=== PATIENT | female | born 1980 | race Caucasian/White ===

== ENCOUNTER 2016-02-18 12:32 | Outpatient (CLI) | payer BC ==
[2016-02-18 13:17] LABS: AMORPHOUS SEDIMENT,URINE TRACE /HPF; APPEARANCE,URINE CLOUDY; BILIRUBIN,URINE NEGATIVE (NEGATIVE); GLUCOSE, URINE NEGATIVE (NEGATIVE); KETONES,URINE NEGATIVE (NEGATIVE); LEUKOCYTE ESTERASE,URINE NEGATIVE (NEGATIVE); NITRITE,URINE NEGATIVE (NEGATIVE); PROTEIN,URINE NEGATIVE (NEGATIVE); URINE SPECIFIC GRAVITY 1.011; UROBILINOGEN,URINE NEGATIVE mg/dL (<2.0)
--- NOTE | 2016-02-19 11:53 | Antepartum Discharge Summary ---
Antepartum DC Datetime Report Generated by CPN: 02/19/2016 11:53 DIET/ACTIVITY/RESTRICTIONS Diet: Regular (02/18/2016 14:57:Taina Bellavance, RNC) Activity: Normal Activity (02/18/2016 14:57:Taina Bellavance, RNC) TEACHING/INSTRUCTIONS/REFERRALS Instructions Given To: patient (02/18/2016 14:57:Taina Bellavance, RNC) Instructions Understood: Patient Verbalized Understanding (02/18/2016 14:57:Taina Bellavance, RNC) Referrals: None (02/18/2016 14:57:Taina Bellavance, RNC) Educational Materials- Other: kick counts (02/18/2016 14:57:Taina Bellavance, RNC) DISCHARGE INFORMATION Discharged AMA: No (02/18/2016 14:57:Taina Bellavance, RNC) Physician Notified of Disch AMA: Dr Franklin (02/18/2016 14:57:Taina Bellavance, RNC) Discharge Date/Time: 02/18/2016 14:58 (02/18/2016 14:57:Taina Bellavance, RNC) Discharged To: Home (02/18/2016 14:57:Taina Bellavance, RNC) Discharge Provider Name: Dr Franklin (02/18/2016 14:57:Taina Bellavance, RNC) Accompanied By: (02/18/2016 14:57:Taina Bellavance, RNC) Discharge Method: Ambulatory (02/18/2016 14:57:Taina Bellavance, RNC) Condition: Stable (02/18/2016 14:57:Taina Bellavance, RNC) FOLLOW UP INFORMATION Follow Up With: [facility] (02/18/2016 14:57:SCOTT Gee) Follow Up On: As Scheduled (02/18/2016 14:57:SCOTT Gee) Follow Up Phone Number: [facility] - (02/18/2016 14:57:SCOTT Gee)
--- NOTE | 2016-02-19 11:54 | L&D Discharge Summary ---
OB Discharge Summary Datetime Report Generated by CPN: 02/19/2016 11:54 DISCHARGE DIAGNOSIS Diagnosis/Symptoms: Other Diagnoses/Symptoms Other: pressure in abdomen Treatment/Procedures Other: monitoring Gestation: 31.0 Number of Babies in Womb: 1 Parity: 1 DIET/ACTIVITY/RESTRICTIONS Diet: Regular Activity: Normal Activity TEACHING/INSTRUCTIONS/REFERRALS Instructions Given To: patient Instructions Understood: Patient Verbalized Understanding Referrals: None Educational Materials- Other: kick counts DISCHARGE INFORMATION Discharged AMA: No Physician Notified of Disch AMA: Dr Franklin Discharge Date/Time: 02/18/2016 14:58 Discharged To: Home Discharge Provider Name: Dr Franklin Accompanied By: Discharge Method: Ambulatory Condition: Stable FOLLOW UP INFORMATION Follow Up With: [facility] Follow Up On: As Scheduled Follow Up Phone Number: [facility] -
--- NOTE | 2016-02-19 11:54 | L&D Flow Sheet ---
LD Flowsheet Datetime Report Generated by CPN: 02/19/2016 11:53 Datetime: 02/18/2016 14:56 Communication Additional Nursing Comments: patient given discharge instructions and kick counts reviewed Patient to home with and daughter (Taina Bellavance, RNC) Datetime: 02/18/2016 14:23 Communication Additional Nursing Comments: back from us (Taina Bellavance, RNC) Datetime: 02/18/2016 14:05 Uterine Activity Monitor Mode: External (Taina Bellavance, RNC) Frequency (min): 0 (Taina Bellavance, RNC) Resting Tone (Palpate): Relaxed (Taina Bellavance, RNC) Assessment A Monitor Mode: External US (Taina Bellavance, RNC) FHR Baseline Rate : 135 (Taina Bellavance, RNC) Variability: Moderate 6-25 bpm (Taina Bellavance, RNC) Accelerations: 15X15 (Taina Bellavance, RNC) Decelerations: None (Taina Bellavance, RNC) Patient Care Patient Position/Activity: Semi-Fowlers (Taina Bellavance, RNC) Communication Additional Nursing Comments: to us for cervical length (Taina Bellavance, RNC) Datetime: 02/18/2016 13:32 Pain Pain Scale: 3 (Taina Bellavance, RNC) Pain Presence: Intermittent (Taina Bellavance, RNC) Pain Type: Pressure (Taina Bellavance, RNC) Pain Location: Perineum (Taina Bellavance, RNC) Pain Goal: 0 (Taina Bellavance, RNC) Pain Relief Measures: Comfort Measures (Taina Bellavance, RNC) Pain Coping: Talking Through Contractions (Taina Bellavance, RNC) Pain Assessment Comments: patient states that she feels pressure every 30 to 45 minutes (Taina Bellavance, RNC) LaborFlag: OB Triage (QS system process) Datetime: 02/18/2016 13:18 Vital Signs Stage of : OB Triage (Taina Bellavance, RNC) Uterine Activity Monitor Mode: External (Taina Bellavance, RNC) Monitor Interventions for UA: Valier Adjusted (Taina Bellavance, RNC) Frequency (min): 0 (Taina Bellavance, RNC) Resting Tone (Palpate): Relaxed (Taina Bellavance, RNC) Assessment A Monitor Mode: External US (Taina Bellavance, RNC) Monitor Interventions for FHR: Ultrasound Adjusted (Taina Bellavance, RNC) FHR Baseline Rate : 135 (Taina Bellavance, RNC) Variability: Moderate 6-25 bpm (Taina Bellavance, RNC) Accelerations: 15X15 (Taina Bellavance, RNC) Decelerations: None (Taina Bellavance, RNC) Patient Care Patient Position/Activity: Semi-Fowlers (Taina Bellavance, RNC) Comfort Measures: Breathing/Relaxation; Family Support (Taina Bellavance, RNC) Datetime: 02/18/2016 13:16 Maternal Assessment Level of Consciousness: Fully Conscious (Taina Bellavance, RNC) DTR's/Clonus: DTRs 2+; No Clonus (Taina Bellavance, RNC) Headache: Denies (Taina Bellavance, RNC) Breath Sounds, Left: Clear and Equal (Taina Bellavance, RNC) Breath Sounds, Right: Clear and Equal (Taina Bellavance, RNC) Nausea/Vomiting: Denies (Taina Bellavance, RNC) RUQ Epigastric Pain: Denies (Taina Bellavance, RNC) Datetime: 02/18/2016 13:03 NBP Sys/Mireya/Mean (mmHg): 111 (QS system process) : 69 (QS system process) : 85 (QS system process) Pulse: 78 (QS system process)
--- NOTE | 2016-02-19 11:54 | L&D General Admission ---
General Admit Datetime Report Generated by CPN: 02/19/2016 11:53 INFORMATION Patient Age: 36 (02/18/2016 12:32:QS system process) EDC: 04/21/2016 00:00 (02/18/2016 12:53:Julianne Aragon RN) : 5 (02/18/2016 12:53:SCOTT Gee) Para: 1 (02/18/2016 14:57:SCOTT Gee) Para: 1 (02/18/2016 12:53:SCOTT Gee) Term: 1 (02/18/2016 12:53:SCOTT Gee) : 0 (02/18/2016 12:53:SCOTT Gee) Spontaneous Abortions: 2 (02/18/2016 12:53:SCOTT Gee) Induced Abortions: 1 (02/18/2016 12:53:SCOTT Gee) Livin (02/18/2016 12:53:Taina Bellavance, RNC) Cesareans: 0 (02/18/2016 12:53:Taina Bellavance, RNC) VBACs: 0 (02/18/2016 12:53:Taina Bellavance, RNC) Ectopic: 0 (02/18/2016 12:53:Taina Bellavance, RNC) Multiple Births: 0 (02/18/2016 12:53:Taina Bellavance, RNC) Baby, Number in Womb: 1 (02/18/2016 14:57:Taina Bellavance, RNC) Baby, Number in Womb: 1 (02/18/2016 12:53:Taina Bellavance, RNC) CARE Primary Gymnastics Coach Or Instructor: [facility] (02/18/2016 12:53:Taina Fraciscoe, RNC) Month of 1st Visit: august (02/18/2016 12:53:Tainanora Yape RNC) Adequate Care: Yes (02/18/2016 12:53:Taina Bellcristophernce, RNC) Prepregnancy Weight (lb): 176 (02/18/2016 12:53:Taina Bellavance, RNC) Prepregnancy Weight (kg): 80.0 (02/18/2016 12:53:QS system process) Height (in): 61 (02/18/2016 12:58:QS system process) Height (in): 24 (02/18/2016 12:53:QS system process) ALLERGIES Medication Allergy: No (02/18/2016 12:53:Taina Bellavance, RNC) Medication Allergies: No Known Allergies (02/18/2016) (02/18/2016 12:54:QS system process) Medication Allergies: no (02/18/2016 12:53:Taina Bellavance, RNC) Latex Allergy: No Latex Allergies (02/18/2016 12:53:Taina Bellavance, RNC) Food Allergies: no (02/18/2016 12:53:Taina Bellavance, RNC) Environmental Allergies: no (02/18/2016 12:53:Taina Bellavance, RNC) COMMUNICATION Primary Language: Citizen Of [place] (02/18/2016 12:53:Taina Bellavance, RNC) DEMOGRAPHICS Address: [address] [place] [id number] (02/18/2016 12:32:QS system process) Zipcode: [address] (02/18/2016 12:32:QS system process) Home (02/18/2016 12:32:QS system process) SSN: [id number] (02/18/2016 12:32:QS system process) Next of Kin Name: TIFFANIE FAGAN (02/18/2016 12:32:QS system process) Next of Kin (02/18/2016 12:32:QS system process) Next of Kin Relationship: SPO (02/18/2016 12:32:QS system process) Date of : 1980 (02/18/2016 12:32:QS system process) Marital Status: (02/18/2016 12:32:QS system process) Sex: Female (02/18/2016 12:32:QS system process) Race: (02/18/2016 12:32:QS system process) Ethnicity: Non- or (02/18/2016 12:32:QS system process) Voodoo: Mu-Ism (02/18/2016 12:32:QS system process) DRUG AND ALCOHOL USE Alcohol: No (02/18/2016 12:53:SCOTT Gee) Cigarettes: Never Smoker. [id number] (02/18/2016 12:53:SCOTT Gee) Marijuana: No (02/18/2016 12:53:Taina Bellavance, RNC) Cocaine: No (02/18/2016 12:53:Taina Bellavance, RNC) Other Illicit Drugs: No (02/18/2016 12:53:Taina Bellavance, RNC) VACCINE HISTORY Influenza Vaccine: Yes (02/18/2016 12:53:Taina Bellavance, RNC) Influenza Date: dec (02/18/2016 12:53:Taina Bellavance, RNC) Pneumococcal Vaccine: No (02/18/2016 12:53:Taina Bellavance, RNC) Tetanus Vaccine: Uncertain (02/18/2016 12:53:Taina Bellavance, RNC) Tdap Vaccine: Uncertain (02/18/2016 12:53:Taina Bellavance, RNC) Hepatitis B Vaccine: Yes (02/18/2016 12:53:Taina Bellavance, RNC) Non Cdl Driver: [facility] (02/18/2016 12:53:Taina Bellavance, RNC) Feeding Preference: Breast (02/18/2016 12:53:SCOTT Gee) Benefit of Breast Feed Discussed: Yes (02/18/2016 12:53:SCOTT Gee) Circumcision: N/A (02/18/2016 12:53:SCOTT Gee) Classes Attended: No (02/18/2016 12:53:SCOTT Gee) Tubal Ligation: Yes (02/18/2016 12:53:SCOTT Gee) Tubal Authorization Signed: N/A (02/18/2016 12:53:SCOTT Gee) Consent: N/A (02/18/2016 12:53:SCOTT Gee) Consent Signed: N/A (02/18/2016 12:53:SCOTT Gee) Pain Management Plans: Epidural (02/18/2016 12:53:SCOTT Gee) Plans for Labor and Delivery: None (02/18/2016 12:53:SCOTT Gee) Support Person: tiffanie (02/18/2016 12:53:SCOTT Gee) Support Person Relationship: (02/18/2016 12:53:SCOTT Gee) Other Relationship: fob (02/18/2016 12:53:SCOTT Gee) Cultural/Spritual Practice: No (02/18/2016 12:53:SCOTT Gee) Spir/Cult Dietary Needs: No (02/18/2016 12:53:SCOTT Gee) LIVING SITUATION/DISCHARGE PLAN Living Arrangements: House (02/18/2016 12:53:SCOTT Gee) Adequate Access to:: Electric; Heat; Refrigeration; Plumbing/Running water; Phone; Transportation (02/18/2016 12:53:SCOTT Gee) WIC Program: [place] (02/18/2016 12:53:SCOTT Gee) 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: tiffanie (02/18/2016 12:53:SCOTT Gee) Person to Help after Discharge: tiffanie (02/18/2016 12:53:SCOTT Gee) Currently Using [facility]: [place] (02/18/2016 12:53:SCOTT Gee) Outside Agency/[employer] Operator: [place] (02/18/2016 12:53:SCOTT Gee) Car Seat for Discharge: Yes (02/18/2016 12:53:SCOTT Gee) Adoption Requested: No (02/18/2016 12:53:SCOTT Gee) Pt Contact w/ Post : N/A (02/18/2016 12:53:SCOTT Gee) OB/PREVIOUS HISTORY Previous Procedures: Ultrasound (02/18/2016 12:53:SCOTT Gee) Current Procedures: Ultrasound (02/18/2016 12:53:SCOTT Gee) History of Previous : No (02/18/2016 12:53:SCOTT Gee) History of Gestational Diabetes: Yes (02/18/2016 12:53:SCOTT Gee) History of PIH: No (02/18/2016 12:53:SCOTT Gee) History of Incompetent Cervix: No (02/18/2016 12:53:SCOTT Gee) History of Placenta Previa/Abrup: No (02/18/2016 12:53:SCOTT Gee) History of Macrosomia: No (02/18/2016 12:53:SCOTT Gee) History of IUGR: No (02/18/2016 12:53:SCOTT Gee) History of Hemorrhage: No (02/18/2016 12:53:SCOTT Gee) History of Loss/Stillborn: No (02/18/2016 12:53:SCOTT Gee) History of : No (02/18/2016 12:53:SCOTT Gee) History of D (Rh) Sensitization: No (02/18/2016 12:53:SCOTT Gee) History Recurrent Loss/Stillborn: No (02/18/2016 12:53:SCOTT Gee) History Depression/PP Depression: Unknown (02/18/2016 12:53:SCOTT Gee) History of Uterine Anomaly/DANIEL: No (02/18/2016 12:53:SCOTT Gee) History of Infertility: No (02/18/2016 12:53:SCOTT Gee) History of ART Treatment: No (02/18/2016 12:53:SCOTT Gee) History of DANIEL: No (02/18/2016 12:53:SCOTT Gee) MEDICAL HISTORY Med Hx Diabetes: No (02/18/2016 12:53:SCOTT Gee) Diabetes Type: Gestational Diabetes (02/18/2016 12:53:SCOTT Gee) Med Hx Hypertension: No (02/18/2016 12:53:SCOTT Gee) Med Hx Heart Disease: No (02/18/2016 12:53:SCOTT Gee) Med Hx Autoimmune Disorder: No (02/18/2016 12:53:SCOTT Gee) Med Hx Kidney Disease/UTI: Yes (02/18/2016 12:53:SCOTT Gee) Med Hx Neurologic/Epilepsy: Yes (02/18/2016 12:53:SCOTT Gee) Med Hx Psychiatric Disorders: Unknown (02/18/2016 12:53:SCOTT Gee) Med Hx Hepatitis/Liver Disease: No (02/18/2016 12:53:SCOTT Gee) Med Hx Varicosities/Phlebitis: Yes (02/18/2016 12:53:SCOTT Gee) Med Hx Thyroid Dysfunction: No (02/18/2016 12:53:SCOTT Gee) Med Hx Trauma/Violence: Yes (02/18/2016 12:53:SCOTT Gee) Med Hx Blood Transfusion: No (02/18/2016 12:53:SCOTT Gee) Med Hx Pulmonary (Asthma,TB): Yes (02/18/2016 12:53:SCOTT Gee) Med Hx Breast: No (02/18/2016 12:53:SCOTT Gee) Med Hx UNDERWATER HUNTER Surgery: No (02/18/2016 12:53:SCOTT Gee) Med Hx Hospitalization/Surgery: No (02/18/2016 12:53:SCOTT Gee) Med Hx Anesthetic Complications: No (02/18/2016 12:53:SCOTT Gee) Med Hx Abnormal Pap Smear: Yes (02/18/2016 12:53:SCOTT Gee) Other Medical Diseases: No (02/18/2016 12:53:SCOTT Gee) Med Hx Significant Family Hx: No (02/18/2016 12:53:SCOTT Gee) Details of Med/Surg Hx: uti's in 20's/migraines/has vericose veins /hx asthma 3 years ago/repeat pap normal/broken knee (02/18/2016 12:53:SCOTT Gee) INFECTIOUS HISTORY Inf Hx Gonorrhea: No (02/18/2016 12:53:SCOTT Gee) Inf Hx Chlamydia: No (02/18/2016 12:53:SCOTT Gee) Inf Hx Syphilis: No (02/18/2016 12:53:SCOTT Gee) Inf Hx HIV/AIDS: No (02/18/2016 12:53:SCOTT Gee) Inf Hx Human Papilloma Virus: No (02/18/2016 12:53:SCOTT Gee) Inf Hx Pt/Partner Genital Herpes: No (02/18/2016 12:53:SCOTT Gee) Inf Hx Tuberculosis/Exposure: No (02/18/2016 12:53:SCOTT Gee) Inf Hx Hepatitis B,C: No (02/18/2016 12:53:SCOTT Gee) Inf Hx Rash or Viral Illness: No (02/18/2016 12:53:SCOTT Gee) GENETIC HISTORY Gen Hx Age >=35 at BLAYNE: No (02/18/2016 12:53:SCOTT Gee) Gen Hx Thalassemia: No (02/18/2016 12:53:SCOTT Gee) Gen Hx Congenital Heart Defect: No (02/18/2016 12:53:SCOTT Gee) Gen Hx Neural Tube Defect: No (02/18/2016 12:53:SCOTT Gee) Gen Hx Down's Syndrome: No (02/18/2016 12:53:SCOTT Gee) Gen Hx Jose Guadalupe-Sachs: No (02/18/2016 12:53:SCOTT Gee) Gen Hx Leighann: No (02/18/2016 12:53:SCOTT Gee) Gen Hx Familial Dysautonomia: No (02/18/2016 12:53:SCOTT Gee) Gen Hx Sickle Cell Disease/Trait: No (02/18/2016 12:53:SCOTT Gee) Gen Hx Hemophilia/Blood Disorder: No (02/18/2016 12:53:SCOTT Gee) Gen Hx Muscular Dystrophy: No (02/18/2016 12:53:SCOTT Gee) Gen Hx Cystic Fibrosis: No (02/18/2016 12:53:SCOTT Gee) Gen Hx Huntingtons Chorea: No (02/18/2016 12:53:SCOTT Gee) Gen Hx Mental Retardation/Autism: No (02/18/2016 12:53:SCOTT Gee) Gen Hx Tested for Fragile X: No (02/18/2016 12:53:SCOTT Gee) Gen Hx Other Inher/Chromosomal: No (02/18/2016 12:53:SCOTT Gee) Gen Hx Maternal Metabolic DO: No (02/18/2016 12:53:SCOTT Gee) Gen Hx Pt Father or FOB Defect: No (02/18/2016 12:53:SCOTT Gee) Gen Hx Other Genetic History: No (02/18/2016 12:53:SCOTT Gee) Gen Hx Drugs/Meds since LMP: Yes (02/18/2016 12:53:SCOTT Gee) Gen Hx Medications: pepcid (02/18/2016 12:53:SCOTT Gee)
[2016-02-20 15:48] LABS: URINE BARBITURATES SCREEN NEGATIVE; URINE METHADONE SCREEN NEGATIVE; URINE PHENCYCLIDINE SCREEN NEGATIVE
== END 2016-02-18 15:01 | disposition home or self-care (01) ==
LOC: LC 12:32
PROVIDERS: ATTEND Obstetrics & Gynecology
PROC: 4A1HXCZ Monitoring of Products of Conception, Cardiac Rate, External Approach (ICD-10-PCS; principal; 2016-02-18)
DX: O26.893 Other specified pregnancy related conditions, third trimester (principal); R10.9 Unspecified abdominal pain; Z3A.31 31 weeks gestation of pregnancy
CPT/HCPCS: 76815; 80307; 81001

== ENCOUNTER 2018-01-12 07:20 | Day surgery (SDC) | payer BC ==
[2017-12-26 12:36] LABS: APPEARANCE,URINE SLIGHTLY-CLOUDY; BILIRUBIN,URINE NEGATIVE (NEGATIVE); COLOR,URINE YELLOW; GLUCOSE, URINE NEGATIVE (NEGATIVE); KETONES,URINE NEGATIVE (NEGATIVE); LEUKOCYTE ESTERASE,URINE SMALL (NEGATIVE); NITRITE,URINE NEGATIVE (NEGATIVE); PROTEIN,URINE NEGATIVE (NEGATIVE); URINE SPECIFIC GRAVITY 1.021; UROBILINOGEN,URINE NEGATIVE mg/dL (<2.0)
--- NOTE | 2017-12-26 12:41 | RADIOLOGY REPORT (SQ) ---
EXAM DESCRIPTION: CHEST PA/LATERAL COMPLETED DATE/TIME: 12/26/2017 12:32 pm REASON FOR STUDY: PRE-OP COMPARISON: None. EXAM PARAMETERS: NUMBER OF VIEWS: two views TECHNIQUE: Digital Frontal and Lateral radiographic views of the chest acquired. RADIATION DOSE: NA LIMITATIONS: none FINDINGS: LUNGS AND PLEURA: No opacities, masses or pneumothorax. No pleural effusion. MEDIASTINUM AND HILAR STRUCTURES: No masses or contour abnormalities. HEART AND VASCULAR STRUCTURES: Heart normal size. No evidence for failure. BONES: No acute findings. HARDWARE: Clips right upper quadrant post cholecystectomy OTHER: No other significant finding. IMPRESSION: NO SIGNIFICANT RADIOGRAPHIC FINDING IN THE CHEST. TECHNICAL DOCUMENTATION: JOB ID: [id number] [employer]- All Rights Reserved Reading location - IP/workstation name: [email or web address]
[2017-12-26 12:42] LABS: HEMATOCRIT 41.8 % (36.0-47.0); HEMOGLOBIN 14.5 g/dL (12.0-15.5); MEAN CORPUSCULAR HEMOGLOBIN 30.7 pg (27.0-33.4); MEAN CORPUSCULAR HGB CONC 34.6 g/dL (32.0-36.0); MEAN CORPUSCULAR VOLUME 89 fl (80-97); PLATELET COUNT 489 10^3/uL (150-450); RED BLOOD COUNT 4.72 10^6/uL (3.72-5.28); RED CELL DISTRIBUTION WIDTH 13.1 % (11.5-14.0); WHITE BLOOD COUNT 6.5 10^3/uL (4.0-10.5)
[2017-12-26 13:21] LABS: ALANINE AMINOTRANSFERASE 22 U/L (9-52); ALKALINE PHOSPHATASE 72 U/L (38-126); ANION GAP 11 (5-19); ASPARTATE AMINO TRANSFERASE 22 U/L (14-36); BILIRUBIN,DIRECT 0.3 mg/dL (0.0-0.4); BILIRUBIN,TOTAL 0.4 mg/dL (0.2-1.3); BLOOD UREA NITROGEN 9 mg/dL (7-20); CALCIUM 9.5 mg/dL (8.4-10.2); CARBON DIOXIDE 28 mmol/L (22-30); CHLORIDE 102 mmol/L (98-107); GLUCOSE 95 mg/dL (75-110); SODIUM 140.8 mmol/L (137-145); TOTAL PROTEIN 7.2 g/dL (6.3-8.2)
--- NOTE | 2017-12-27 00:18 | EKG REPORT ---
SEVERITY:- BORDERLINE ECG - SINUS RHYTHM BORDERLINE LEFT AXIS DEVIATION INFERIOR Q WAVES, PROBABLY NORMAL VARIATION : Confirmed by: Mellissa Shabazz 27-Dec-2017 00:18:00
[~2018-01-12 07:20] MED LIST: ACETAMINOPHEN 1,000 MG/100 ML RTUPB IV ONE; CEFAZOLIN 1 GM/D5W RTU 1 GM/50 ML RTUPB IV ONE; CEFAZOLIN 1 GM/D5W RTU 1 GM/50 ML RTUPB IV PRN; DEXAMETHASONE SOD PHOSPHATE INJ 4 MG/1 ML VIAL ONE; FENTANYL CITRATE INJ/PF 100 MCG/2 ML AMPUL ONE; LACTATED RINGERS 1000 ML IV PRN; LIDOCAINE 0.5% INJ-PF (5 MG/ML) 50 ML SDV SUBCUT PRN; MIDAZOLAM 2 MG/2 ML INJ IV PRN; MIDAZOLAM 2 MG/2 ML INJ ONE; ONDANSETRON HCL INJ/PF 4 MG/2 ML SDV ONE; PROPOFOL INJ 200 MG/20 ML VIAL IV ONE
[2018-01-12] MEDS ORDERED: MIDAZOLAM 2 MG/2 ML INJ ONE (07:54)
[2018-01-12] MEDS ORDERED: NEOSTIGMINE METHYLSULFATE 10 MG/10 ML VIAL ONE (08:40)
[2018-01-12] MEDS ORDERED: SUCCINYLCHOLINE CHLORIDE INJ 200 MG/10 ML VIAL ONE (08:40)
[2018-01-12] MEDS ORDERED: VECURONIUM BROMIDE INJ 10 MG VIAL IV ONE (08:40)
[2018-01-12] MEDS ORDERED: KETOROLAC TROMETHAMINE 60 MG/2 ML SDV ONE (08:40)
[2018-01-12] MEDS ORDERED: GLYCOPYRROLATE 1 MG/5 ML SYRINGE ONE (08:40)
[2018-01-12] MEDS ORDERED: ALBUTEROL SULFATE 0.083% NEB 2.5 MG/3 ML AMPUL NEB ONE (09:17)
[2018-01-12] MEDS ORDERED: ONDANSETRON HCL INJ/PF 4 MG/2 ML SDV IV PRN (10:23)
[2018-01-12] MEDS ORDERED: MEPERIDINE HCL/PF INJ 25 MG/1 ML DISP.SYRIN IV PRN (10:23)
[2018-01-12] MEDS ORDERED: DIPHENHYDRAMINE HCL 50 MG/ML VIAL IV PRN (10:23)
[2018-01-12] MEDS ORDERED: FENTANYL CITRATE INJ/PF 100 MCG/2 ML AMPUL IV PRN ×3 (10:23)
[2018-01-12] MEDS ORDERED: MORPHINE SULFATE 10 MG/ML INJ IV PRN (10:23)
[2018-01-12] MEDS ORDERED: PROMETHAZINE HCL INJ 25 MG/1 ML VIAL IV PRN ×2 (10:23)
[2018-01-12] MEDS ORDERED: ONDANSETRON HCL 8 MG TABLET PO PRN (10:54)
[2018-01-12] MEDS: FENTANYL CITRATE INJ/PF 100 MCG/2 ML AMPUL ONE ×2 (10:55→11:00)
[2018-01-12] MEDS ORDERED: MORPHINE SULFATE 10 MG/ML INJ ONE (10:55)
--- NOTE | 2018-01-12 11:03 | OPERATIVE REPORT E ---
Operative Report NAME: LUIZA FAGAN : 1980 AGE: 37Y DATE OF SURGERY: 01/12/2018 ROOM: PREOPERATIVE DIAGNOSIS: HYPERMENORRHEA. POSTOPERATIVE DIAGNOSIS: HYPERMENORRHEA WITH SUSPECTED ADENOMYOSIS. SURGEON: Ingrid CHOWDARY M.D. ENVIRONMENTAL SERVICES AIDE: Dr. Coello ANESTHESIA: General. TISSUE REMOVED OR ALTERED: Uterus. PROCEDURE: Patient placed in a dorsal lithotomy position, prepped and draped in sterile fashion. Speculum was placed and cervix visualized and grasped with Silvano thyroid clamp. Posterior cul-de-sac was entered with sharp dissection. Posterior parietal peritoneum was secured to the posterior cuff with 2-0 Vicryl. Left uterosacral was clamped, divided, and sutured with 2-0 Vicryl, repeated on the other side. The anterior parietal peritoneum was then entered. Sharply circumscribed the cervix. Serial clamps on each side of the uterus, each pedicle being clamped, divided, and sutured with 2-0 Vicryl. Continued to the level of utero-ovarian ligament. Utero-ovarian ligament was crossclamped and uterus removed. The utero-ovarian ligament was sutured with free tie of 2-0 Vicryl followed by a suture tie of 2-0 Vicryl. The pelvis was inspected and hemostasis was noted. The cuff was then closed with interrupted sutures of 2-0 Vicryl. The urine remained clear throughout the procedure. Dr. Coello was assisting. The Ugalde was removed prior to her leaving the room. DICTATING PHYSICIAN: Ingrid CHOWDARY M.D. [id number] Y#: [id number] ID: [id number] JOB#: [id number] ACCT: [id number] cc:Ingrid CHOWDARY M.D. >
[2018-01-12] MEDS ORDERED: ONDANSETRON 4 MG TAB.RAPDIS PO PRN (12:35)
[2018-01-12] MEDS: IBUPROFEN 800 MG TABLET PO SCH ×2 (14:00→22:35)
[2018-01-12] MEDS ORDERED: HYDROMORPHONE HCL INJ/PF 2 MG/ML AMPULE IV PRN (18:00)
[2018-01-12] MEDS ORDERED: PROMETHAZINE HCL INJ 25 MG/1 ML VIAL IV ONE (19:00)
[2018-01-13] MEDS: OXYCODONE-ACETAMINOPHEN 5-325 MG TABLET PO PRN ×2 (04:32→13:55)
[2018-01-13] MEDS: IBUPROFEN 800 MG TABLET PO SCH ×2 (05:54→13:55)
[2018-01-13] MEDS ORDERED: LANSOPRAZOLE 30 MG TAB.RAP.DR PO SCH (06:00)
--- NOTE | 2018-01-13 07:45 | PDOC DISCHARGE SUMMARY ---
General - Admit/Disc Date/PCP Discharge Date: 01/13/18 - Discharge Diagnosis (1) Menorrhagia Is this a current diagnosis for this admission?: Yes - Additional Information Discharge Diet: As Tolerated Discharge Activity: Activity As Tolerated, Balance Activity w/Rest, Energy Conservation, No Lifting/Push/Pulling, Pelvic Rest, Slowly Increase Activity, No tub bath, Walk Frequently Home Medications: Ergocalciferol (Vitamin D2) [Vitamin D] 1 tab PO DAILY 02/18/16 Pantoprazole Sodium [Protonix] 40 mg PO DAILY 12/26/17 Phentermine HCl 37.5 mg PO DAILY 12/26/17 Vortioxetine Hydrobromide [Brintellix] 10 mg PO DAILY 12/26/17 History of Present Illness Patient complains of: heavy vaginal bleeding with severe pain failed conservative therapy History of Present Illness: LUIZA FAGAN is a 37 year old female Hospital Course Hospital Course: TVH and benign hospital course Physical Exam - Physical Exam Vital Signs: Temp Pulse Resp BP Pulse Ox 98.2 F 91 18 133/88 H 96 01/13/18 03:16 01/13/18 03:16 01/13/18 03:16 01/13/18 03:16 01/13/18 02:22 Intake & Output 01/12/18 01/13/18 01/14/18 06:59 06:59 06:59 Intake Total 1620 Output Total 1420 Balance 200 Weight 67.9 kg General appearance: PRESENT: no acute distress Respiratory exam: PRESENT: clear to auscultation fabrice GI/Abdominal exam: PRESENT: soft Result Laboratory Results: 12/26/17 11:58 12/26/17 11:58 01/12/18 07:55 Blood Type O POSITIVE Antibody Screen NEGATIVE Impressions: Chest X-Ray 12/26/17 12:27 IMPRESSION: NO SIGNIFICANT RADIOGRAPHIC FINDING IN THE CHEST. Plan Discharge Plan: D/C fu 1 week Time Spent: Less than 30 Minutes
[2018-01-13] MEDS ORDERED: (PENDING PHARMACY ID) (Vortioxetine Hydrobromide [Trintellix] 10 MG) PO SCH (10:00)
[2018-01-13 15:03] VITALS: BP 138/96
== END 2018-01-13 15:21 | disposition home or self-care (01) ==
LOC: OROUT 07:20 → 2S 12:07 → OROUT 01-13 15:21
PROVIDERS: ATTEND Obstetrics & Gynecology Gynecology
PROC: 0UT97ZZ Resection of Uterus, Via Natural or Artificial Opening (ICD-10-PCS; principal; 2018-01-12 09:45)
DX: N92.1 Excessive and frequent menstruation with irregular cycle (principal)
CPT/HCPCS: 93005; 86900; 86901; 36415 ×2; 86850; 85027; 81025; 80053; 81001; 88307 ×2; 71046; 93010; 58260; J2250; J0690; J1100; J1885; S0119; J3010; J3490 ×2; J2270; J1170; J2550; J0330; J2405; J2704; J0131; 944